=== PATIENT | male | born 1960 | race Caucasian/White ===

== ENCOUNTER 2024-03-27 10:46 | Inpatient (IN) | payer MEDICARE, OTHER ==
[~2024-03-27] VITALS: Ht 180.3 cm; Wt 86.0 kg
[2024-03-27] MEDS ORDERED: LOSA100T46 PO (11:02)
[2024-03-27] MEDS ORDERED: XARE15TA PO (11:02)
[2024-03-27] MEDS ORDERED: LASI40TA9 PO (11:05)
[2024-03-27] MEDS ORDERED: DILT180C78 PO (12:38)
[2024-03-27] MEDS ORDERED: HYOS0.1258 PO (12:38)
[2024-03-27 13:06] LABS: HEMATOCRIT 42.8 % (42.0-52.0); HEMOGLOBIN 14.5 g/dl (13.5-17.5); LYMPH # 0.8 10^3/uL (1.5-5.0); LYMPH % 20.5 % (24.0-44.0); MEAN CORPUSCULAR HEMOGLOBIN 34.8 pg (27.0-33.0); MEAN CORPUSCULAR HGB CONC 33.9 g/dl (32.0-36.5); MEAN CORPUSCULAR VOLUME 102.6 fl (80.0-96.0); MONO # 0.5 10^3/uL (0.0-0.8); MONO % 13.2 % (2.0-8.0); NEUTROPHILS # 2.6 10^3/uL (1.5-8.5); NEUTROPHILS % 64.1 % (36.0-66.0); PLATELET COUNT, AUTOMATED 136 10^3/uL (150-450); RED BLOOD COUNT 4.17 10^6/uL (4.30-6.10); WHITE BLOOD COUNT 4.1 10^3/uL (4.0-10.0)
[2024-03-27 13:10] LABS: C REACTIVE PROTEIN QUANTITATIV 0.6 MG/DL (<1.0); CK-MB VALUE MASS 1.6 NG/ML (<3.6)
[2024-03-27 13:11] LABS: ALBUMIN 3.6 G/DL (3.2-5.2); BILIRUBIN,DIRECT 1.4 MG/DL (<0.4); BILIRUBIN,TOTAL 2.7 MG/DL (0.3-1.2); CALCIUM LEVEL 8.4 MG/DL (8.3-10.6); CREATININE FOR GFR 1.4 MG/DL (0.70-1.30); TOTAL PROTEIN 6.5 G/DL (5.7-8.2)
[2024-03-27] MEDS ORDERED: ISOVUE-370 76% 100ML VIAL As Ordered ONE (13:19)
[2024-03-27 13:22] LABS: INR 1.53; PARTIAL THROMBOPLASTIN TIME 27.7 SECONDS (24.8-34.2); PROTHROMBIN TIME 17.9 SECONDS (12.5-14.5)
[2024-03-27 13:24] LABS: MB/CK RELATIVE INDEX 0.86 (< OR =4)
[2024-03-27] MEDS: dilTIAZem 120MG **CD** CAPSULE PO ONE (15:49)
[2024-03-27] MEDS: dilTIAZem 25MG/5ML VIAL IV STA (16:53)
[2024-03-27] MEDS: MULTIVITAMINS/MINERALS THERAP 1 TAB PO ONE (16:55)
[2024-03-27] MEDS: THIAMINE 100 MG TAB PO ONE (17:20)
[2024-03-27] MEDS: FOLIC ACID 1MG TAB PO ONE (17:20)
[2024-03-27] MEDS: FUROSEMIDE 40MG/4ML VIAL IV ONE (17:20)
[2024-03-27] MEDS: METOPROLOL 5 MG/5 ML VIAL IV SCH (17:40)
[2024-03-27] MEDS ORDERED: RIVAROXABAN 15MG TAB (XARELTO) PO SCH (18:00)
[2024-03-27] MEDS ORDERED: LORazepam 2 MG TAB PO PRN (18:10)
[2024-03-27 18:29] LABS: THYROID STIMULATING HORMONE 3.105 uIU/ML (0.55-4.78)
[2024-03-27] MEDS: diltiaZEM 125 MG in NS 100 ML IV SCH (18:43)
[2024-03-27] MEDS ORDERED: FAMO40TA3 PO (18:57)
[2024-03-27] MEDS ORDERED: FURO40TA2 PO (19:01)
[2024-03-27] MEDS ORDERED: HYOS0.374 PO (19:01)
[2024-03-27] MEDS ORDERED: DILT240C82 PO (19:39)
[2024-03-27] MEDS ORDERED: DILT120T11 PO (19:39)
[2024-03-27] MEDS ORDERED: MULT-100 PO (19:39)
[2024-03-27] MEDS ORDERED: DILT120C89 PO (19:42)
[2024-03-27] MEDS ORDERED: HOME MED LIST COMPLETE! XX SCH (19:45)
[2024-03-27 19:57] VITALS: BP 173/91; TEMP 98.5; O2SAT 98
[2024-03-27] MEDS: BENZONATATE 100MG CAPSULE PO PRN (20:38)
[2024-03-27] MEDS: FUROSEMIDE 20MG/2ML VIAL IV ONE (21:32)
[2024-03-27] MEDS ORDERED: LEVALBUTEROL HFA 45MCG/ACT 15GM INHALER INH PRN (21:50)
[2024-03-27 23:00] VITALS: BP 161/94; TEMP 98.3; O2SAT 94
[2024-03-28] VITALS (9 sets, daily range): BP systolic 137–176; BP diastolic 6–90; TEMP 97.3–102.2; O2SAT 92–97
[2024-03-28] MEDS ORDERED: dilTIAZem 30 MG TAB PO SCH (06:00)
[2024-03-28 06:06] LABS: HEMATOCRIT 41.4 % (42.0-52.0); HEMOGLOBIN 14.2 g/dl (13.5-17.5); MEAN CORPUSCULAR HEMOGLOBIN 34.5 pg (27.0-33.0); MEAN CORPUSCULAR HGB CONC 34.3 g/dl (32.0-36.5); MEAN CORPUSCULAR VOLUME 100.7 fl (80.0-96.0); PLATELET COUNT, AUTOMATED 131 10^3/uL (150-450); RED BLOOD COUNT 4.11 10^6/uL (4.30-6.10); WHITE BLOOD COUNT 4.7 10^3/uL (4.0-10.0)
[2024-03-28 06:27] LABS: ALBUMIN 3.7 G/DL (3.2-5.2); BILIRUBIN,TOTAL 3.6 MG/DL (0.3-1.2); CALCIUM LEVEL 8.8 MG/DL (8.3-10.6); CREATININE FOR GFR 1.4 MG/DL (0.70-1.30); MAGNESIUM LEVEL 1.9 MG/DL (1.8-2.4); POTASSIUM SERUM 4.1 MMOL/L (3.5-5.1); TOTAL PROTEIN 6.5 G/DL (5.7-8.2)
[2024-03-28] MEDS: RIVAROXABAN 15MG TAB (XARELTO) PO SCH (08:00)
[2024-03-28] MEDS: dilTIAZem 60 MG TAB PO SCH (08:34)
[2024-03-28] MEDS: MULTIVITAMINS/MINERALS THERAP 1 TAB PO SCH (08:35)
[2024-03-28] MEDS: FOLIC ACID 1MG TAB PO SCH (08:35)
[2024-03-28] MEDS: THIAMINE 100 MG TAB PO SCH (08:35)
[2024-03-28] MEDS: FUROSEMIDE 40 MG TAB PO SCH (10:32)
[2024-03-28] MEDS: SPIRONOLACTONE 25 MG TAB PO SCH (10:32)
[2024-03-28] MEDS: SODIUM CHLORIDE NASAL 0.65% SPRAY BTL (OCEAN) SCH (13:17)
[2024-03-28 16:12] LABS: APPEARANCE, BODY FLUID HAZY (CLEAR); ASCITES FL COLOR YELLOW (COLORLESS); SOURCE, BODY FLUID ASCITES
[2024-03-28 16:17] LABS: PROCALCITONIN 0.12 ng/ml
[2024-03-28] MEDS: LOSARTAN 50MG TABLET PO SCH (16:29)
[2024-03-28 16:46] LABS: SOURCE, BODY FLUID ALBUMIN ASCITES
[2024-03-28 16:51] LABS: SOURCE, BODY FLUID GLUCOSE ASCITES
[2024-03-28 16:53] LABS: SOURCE, BODY FLUID TOT PROTEIN ASCITES; TOTAL PROTEIN, BODY FLUID 3.7 G/DL (NOT ESTABLISHED)
[2024-03-28] MEDS: cefTRIAXone SOD 2 GM in D5W MINI-BAG PLUS 50 ML IV SCH (17:16)
[2024-03-28] MEDS: ACETAMINOPHEN TAB 650MG DOSE (2X325MG) PO PRN (17:17)
[2024-03-28] MEDS: LIDOCAINE 5% (LIDODERM) PATCH TD SCH (17:41)
[2024-03-28] MEDS: ACETAMINOPHEN *IV* 500 MG in IV 1 EA IV ONE (18:44)
[2024-03-28] MEDS: CALCIUM CARBONATE 500 MG CHEW U/D PO ONE (20:11)
[2024-03-28] MEDS ORDERED: ACETAMINOPHEN 500 MG TAB PO ONE (20:55)
[2024-03-29] VITALS (8 sets, daily range): BP systolic 140–170; BP diastolic 77–91; TEMP 97.3–100; O2SAT 90–92
[2024-03-29 06:40] LABS: BASO # 0.1 10^3/uL (0.0-0.2); EOS % 0.2 % (0.0-3.0); HEMATOCRIT 42.5 % (42.0-52.0); HEMOGLOBIN 14.5 g/dl (13.5-17.5); LYMPH # 0.9 10^3/uL (1.5-5.0); LYMPH % 17.2 % (24.0-44.0); MEAN CORPUSCULAR HEMOGLOBIN 34.8 pg (27.0-33.0); MEAN CORPUSCULAR HGB CONC 34.1 g/dl (32.0-36.5); MEAN CORPUSCULAR VOLUME 101.9 fl (80.0-96.0); MONO # 0.6 10^3/uL (0.0-0.8); MONO % 11.4 % (2.0-8.0); NEUTROPHILS # 3.5 10^3/uL (1.5-8.5); PLATELET COUNT, AUTOMATED 132 10^3/uL (150-450); RED BLOOD COUNT 4.17 10^6/uL (4.30-6.10)
[2024-03-29 07:41] LABS: ALBUMIN 3.4 G/DL (3.2-5.2); BILIRUBIN,TOTAL 2.4 MG/DL (0.3-1.2); CALCIUM LEVEL 8.8 MG/DL (8.3-10.6); CREATININE FOR GFR 1.42 MG/DL (0.70-1.30); GLOMERULAR FILTRATION RATE 53.1 (>49); MAGNESIUM LEVEL 1.7 MG/DL (1.8-2.4); POTASSIUM SERUM 4.2 MMOL/L (3.5-5.1); TOTAL PROTEIN 6.3 G/DL (5.7-8.2)
[2024-03-29] MEDS: dilTIAZem **CD** 180MG CAP PO SCH (08:21)
[2024-03-29] MEDS: LOSARTAN 50MG TABLET PO ONE (08:46)
[2024-03-29] MEDS: MAG SULF 1GM/100ML (MAG RUN) 1 GM in IV 1 EA IV ONE (08:47)
[2024-03-29] MEDS: MAG SULF 1GM/100ML (MAG RUN) 1 GM in IV 1 EA IV SCH (09:56)
[2024-03-29] MEDS ORDERED: CARD180C4 PO (10:14)
[2024-03-29] MEDS ORDERED: ACET1TAB55 PO (10:14)
[2024-03-29] MEDS ORDERED: ALDA25TA2 PO (10:14)
[2024-03-29] MEDS: **hydrALAZINE HCL** 25 MG TAB PO SCH (11:09)
[2024-03-29] MEDS ORDERED: FURO40TA2 PO (12:33)
[2024-03-29] MEDS ORDERED: HYDR25TA87 PO (12:34)
[2024-03-29] MEDS ORDERED: MAGN400T2 PO (12:36)
[2024-03-29] MEDS: ACETAMINOPHEN *IV* 500 MG in IV 1 EA IV ONE (13:23)
== END 2024-03-29 14:13 | disposition home or self-care (01) | DRG 291 ==
LOC: EDBD 10:46 → M ED 10:46 → M ED INP 17:35 → M PCU 19:37
PROVIDERS: ADMIT Internal Medicine; ATTEND Internal Medicine
PROC: 0W9G3ZZ Drainage of Peritoneal Cavity, Percutaneous Approach (ICD-10-PCS; principal; 2024-03-28 16:00)
DX: I13.0 Hypertensive heart and chronic kidney disease with heart failure and stage 1 through stage 4 chronic kidney disease, or unspecified chronic kidney disease (principal); I50.33 Acute on chronic diastolic (congestive) heart failure; R18.8 Other ascites; I48.92 Unspecified atrial flutter; K76.6 Portal hypertension; I48.19 Other persistent atrial fibrillation; I42.8 Other cardiomyopathies; N18.9 Chronic kidney disease, unspecified; K76.0 Fatty (change of) liver, not elsewhere classified; F10.20 Alcohol dependence, uncomplicated; I27.20 Pulmonary hypertension, unspecified; Z79.899 Other long term (current) drug therapy; Z87.891 Personal history of nicotine dependence